=== PATIENT | female | born 1955 | race Caucasian/White ===

== ENCOUNTER 2021-01-28 08:01 | Outpatient (RCR) | payer BC, SELFPAY ==
--- NOTE | 2021-01-28 08:37 | PTOPEVAL ---
Thank you for referring Nadja Florentino to [facility].? The patient is scheduled to be seen for therapy? __2__x/week for 4 visits. Please review, sign, date and return this plan of care TRAVIS. I agree with and certify that the following plan of care is medically necessary. Referring Physician Date Admitting Provider: Attending Provider: Anthony Medeiros MD Referring Provider: *PT Outpatient Evaluation Start: 01/28/21 08:03 Freq: Status: Active Protocol: Document 01/28/21 08:03 ERVIN (Rec: 01/28/21 08:37 ERVIN [id number]) Therapy Assessment Status Assessment Status Assessment Status Evaluation Evaluation Information Problem Diagnosis bilateral knee OA Onset 11/17/20 Subjective Information Pt. reports that in the first Query Text:As Reported By Patient/ part of november she developed pain Family in the knee. She reports shortly after that she experienced an episode of the right knee giving out on her. Pt. reports that she recieved cortisone injection in the right knee and no cortisone in the left knee. She reports that most pain is located in the back of the knee. She especially will note pain with going down steps. She had xray which revealed severe OA. She reports she notices she is walking slower. She states that her goal is to improve her walking and decrease her pain. Prior Level of Function Activity Level (Last 3 Months) Occupation desk work Hand Dominance Right Activity of Daily Living Ability Independent Indoor/Home Mobility Independent Community Mobility Independent Stairs Ability Independent Functional Cognition (Planning, Shopping Independent , Taking Medications) Cooking Yes Cleaning Yes Laundry Yes Shopping Yes Driving Yes Pain Assessment Timing of Pain Assessment Timing of Pain Assessment Pre-Treatment Pain Scale Pain Scale Used Numeric (1 - 10) Self Report Pain Assessment Left Knee(s) Reported Pain Level 1 Pain Description Aching Pain Frequency Continuous Right Knee(s) Reported Pain Lev
== END 2021-02-18 18:22 | disposition home or self-care (01) ==
LOC: CHSPT 08:01
PROVIDERS: Visit Provider Orthopaedic Surgery
DX: M17.0 Bilateral primary osteoarthritis of knee (principal)
CPT/HCPCS: 97014; 97110; 97161; G0283